=== PATIENT | female | born 1970 | race Caucasian/White ===

== ENCOUNTER 2017-09-01 08:46 | Emergency (ER) | payer MEDICAID ==
--- NOTE | ~2017-09-01 | ST ---
PATIENT:SHENA ZARATE MEDICAL RECORD: [id number] SEX: F LOCATION:ER ORDER #: ADMISSION DATE: 09/01/17 AGE OF PATIENT: 47 REFERRING PHYSICIAN: INTERPRETING PHYSICIAN: YESSENIA RESENDIZ MD DATE OF PROCEDURE: 09/01/2017 PROCEDURE: Exercise Stress Test. INDICATION: Chest pain of unknown etiology. She was exercised on a Star protocol for 6 minutes, terminated due to achievement of maximum target heart rate response with no EKG changes, no chest discomfort, no dysrhythmia. OVERALL IMPRESSION: Negative for inducible ischemia at adequate cardiac workload. TRANSINT:[id number] Voice Confirmation ID: [id number] DOCUMENT ID: [id number] YESSENIA RESENDIZ MD at 1351 CC: [id number] DICTATION DATE: 09/01/17 1323 DIRECTOR BUSINESS DEVELOPMENT: 09/01/17 [address] [place] [address]
--- NOTE | ~2017-09-01 | CN ---
PATIENT NAME:SHENA ZAARTE MEDICAL RECORD: [id number] : 74 LOCATION:.ER ADMIT DATE: ACCOUNT: [id number] CONSULTING PHYSICIAN: YESSENIA RESENDIZ MD REFERRING PHYSICIAN: GLADIS CABRERA MD DATE OF CONSULTATION: 09/01/2017 ADMITTING DIAGNOSES: 1. Chest pain. 2. Family history of coronary artery disease. HISTORY OF PRESENT ILLNESS: Mrs. Zarate has been having week and a half of increasing episodes of chest pain, some typical components for angina, some atypical components. She has a family history, but other than that really has no cardiac risk factors. She is not a smoker, has her ovaries. EKG is unremarkable. Troponin is unremarkable. PHYSICAL EXAMINATION: GENERAL APPEARANCE: Well-nourished, well-developed, appears stated age. Level of distress, comfortable. PSYCHIATRIC: Mental status, alert, normal affect. Orientation, oriented to time, place and person. EYES: Lids and conjunctiva, noninjected. No discharge, no pallor. ENT: Lips, teeth, gums, normal dentition. Oropharynx, no cyanosis, no pallor. NECK: Carotid arteries, bilateral normal upstroke, no bruits, no thrills. JUGULAR VEINS: No jugular venous pressure or distention. CERVICAL LYMPH NODES: Nontender, nonenlarged. THYROID: Not enlarged. Nontender. No nodules. LUNGS: Respiratory effort, unlabored. CHEST: Normal curvature. No thoracic deformity. No chest wall tenderness. Percussion, resonant. Auscultation, clear. No wheezes, no rales, no rhonchi. CARDIOVASCULAR: Precordial exam, nondisplaced. No heaves or pericardial thrills. Rate and rhythm, regular. Heart sounds, normal S1, normal S2. No S3, no gallop, no rub. Systolic murmur, not heard. Diastolic murmur, not heard. EXTREMITIES: No cyanosis, no edema. Peripheral pulses, full and equal in all extremities, except as noted. No bruits appreciated. ABDOMEN: Soft, nondistended. Normal aorta. No bruit. Nontender. No masses. Liver, nontender, no hepatomegaly. Spleen, nontender, no splenomegaly. MUSCULOSKELETAL: No joint tenderness. No joint swelling. No erythema. NEUROLOGICAL: Normal gait, normal strength, normal tone. SKIN: Warm and dry. OVERALL IMPRESSION: Chest pain of unknown etiology. We will perform exercise stress test. She has a normal EKG. Further care depends on the stress test. TRANSINT:[id number] Voice Confirmation ID: [id number] DOCUMENT ID: [id number] CONSULT REPORT [id number] SHENA ZARATE, YESSENIA PETTY at 1351 CC: [id number] DICTATION DATE: 09/01/17 1105 WATERPROOFER HELPER: 09/01/17 [address] [id number]
[2017-09-01 09:33] LABS: BASOPHILS 0.8 % (0-2); EOSINOPHILS 1.9 % (0-7); HEMATOCRIT 39.7 % (36.0-48.0); HEMOGLOBIN 13.5 g/dL (12-16); IMMATURE GRANULOCYTES 0.2 % (0-5); LYMPHOCYTES 29.4 % (15-50); MCH 30.3 pg (26.0-34.0); MCV 89.2 fL (80.0-100.0); MEAN PLATELET VOLUME 11.2 fL (7.4-10.4); MONOCYTES 8.3 % (2-11); NEUTROPHILS 59.4 % (40-80); PLATELET COUNT 231 10x3/uL (130-400); RBC 4.45 10x6/uL (4.00-5.40); RDW 12.5 % (11.5-14.5); WBC 5.3 10x3/uL (4.8-10.8)
[2017-09-01 09:43] LABS: ALBUMIN 3.8 g/dL (3.4-5.0); ALKALINE PHOSPHATASE 57 U/L (46-116); ALT (SGPT) 22 U/L (10-68); BILIRUBIN - TOTAL 1.17 mg/dL (0.2-1.3); CALC OSMOLALITY 277 mosm/kg (275-300); CALCIUM 8.9 mg/dL (8.5-10.1); CARBON DIOXIDE 25.4 mmol/L (21.0-32.0); CHLORIDE - SERUM 105 mmol/L (98-107); CREATININE - SERUM 0.5 mg/dL (0.6-1.3); GLUCOSE 87 mg/dL (74-106); POTASSIUM - SERUM 4.9 mmol/L (3.5-5.1); PROTEIN - SERUM 7.5 g/dL (6.4-8.2); SODIUM 140 mmol/L (136-145); UREA NITROGEN 12 mg/dL (7-18); eGFR NON AFRICAN AMERICAN > 90 mL/min (90-120)
[2017-09-01 09:55] LABS: CKMB 0.4 U/L (0.0-3.6); CREATINE KINASE 84 UL (21-215); PRO BNP 92 pg/mL (0-125)
[2017-09-01 10:03] LABS: TROPONIN-I < 0.017 ng/mL (0.000-0.060)
== END 2017-09-01 14:48 | disposition home or self-care (01) ==
LOC: EDBD 08:46 → D.ER 08:46
PROVIDERS: Emergency Medicine
DX: R07.9 Chest pain, unspecified (principal)

== ENCOUNTER 2017-09-08 08:29 | Outpatient (CLI) | payer MEDICAID ==
--- NOTE | ~2017-09-08 | OP ---
PATIENT NAME: SHENA ZARATE MEDICAL RECORD: [id number] :74 LOCATION:D.CAT ADMISSION DATE: SURGEON: YESSENIA RESENDIZ MD DATE OF OPERATION: 09/08/2017 PROCEDURES: 1. Left heart catheterization. 2. Selective coronary angiography. 3. Left ventriculogram. INDICATION: Chest pain compatible with angina. PROCEDURE IN DETAIL: After informed consent was obtained and after detailed explanation of risks, benefits as well as alternative therapies, the patient elected to proceed with angiogram and heart catheterization. Right radial area was prepped and draped in normal sterile fashion. Right radial artery was cannulated via modified Seldinger technique with placement of 5-Turkish sheath. All catheters exchanged through the sheath. FINDINGS: Left ventriculogram was performed in standard 30-degree CARNES view reveals good cardiac wall motion throughout all segments. Overall ejection fraction estimated 60%. SELECTIVE CORONARY ANGIOGRAPHY: Left main, left anterior descending, left circumflex, right coronary artery are all smooth-walled vessels with no angiographic evidence of coronary artery disease. OVERALL IMPRESSION: 1. No angiographic evidence of coronary artery disease. 2. Normal left heart pressures. 3. Normal left ventricular systolic function. Chest pain is noncardiac in etiology. No further cardiac workup needs to be ascertained. TRANSINT:[id number] Voice Confirmation ID: [id number] DOCUMENT ID: [id number] YESSENIA RESENDIZ MD at 1730 CC: [id number] DICTATION DATE: 09/08/17 1148 TELLER SUPERVISOR: 09/08/17 1309 DEP CLI 09/08/17 [id number] [id number]
--- NOTE | ~2017-09-08 | HP ---
PATIENT: SHENA MACKEY MEDICAL RECORD: [id number] ACCOUNT: [id number] LOCATION:INO : 74 ADMISSION DATE: 09/08/17 HISTORY AND PHYSICAL EXAMINATION DIAGNOSES: 1. Angina. 2. Family history of coronary artery disease. HISTORY OF PRESENT ILLNESS: Ms. Mackey presents for cardiac catheterization. She has continued to have episodes of chest pain, very typical for angina. She has a strong family history of coronary artery disease. PHYSICAL EXAMINATION: GENERAL APPEARANCE: Well-nourished, well-developed, appears stated age. Level of distress, comfortable. PSYCHIATRIC: Mental status, alert, normal affect. Orientation, oriented to time, place and person. EYES: Lids and conjunctiva, noninjected. No discharge, no pallor. ENT: Lips, teeth, gums, normal dentition. Oropharynx, no cyanosis, no pallor. NECK: Carotid arteries, bilateral normal upstroke, no bruits, no thrills. JUGULAR VEINS: No jugular venous pressure or distention. CERVICAL LYMPH NODES: Nontender, nonenlarged. THYROID: Not enlarged. Nontender. No nodules. LUNGS: Respiratory effort, unlabored. CHEST: Normal curvature. No thoracic deformity. No chest wall tenderness. Percussion, resonant. Auscultation, clear. No wheezes, no rales, no rhonchi. CARDIOVASCULAR: Precordial exam, nondisplaced. No heaves or pericardial thrills. Rate and rhythm, regular. Heart sounds, normal S1, normal S2. No S3, no gallop, no rub. Systolic murmur, not heard. Diastolic murmur, not heard. EXTREMITIES: No cyanosis, no edema. Peripheral pulses, full and equal in all extremities, except as noted. No bruits appreciated. ABDOMEN: Soft, nondistended. Normal aorta. No bruit. Nontender. No masses. Liver, nontender, no hepatomegaly. Spleen, nontender, no splenomegaly. MUSCULOSKELETAL: No joint tenderness. No joint swelling. No erythema. NEUROLOGICAL: Normal gait, normal strength, normal tone. SKIN: Warm and dry. REVIEW OF SYSTEMS: The patient reports easy bruising but reports no swollen glands. The patient reports no fever, no night sweats, no significant weight gain, no significant weight loss. No significant exercise tolerance. The patient reports no dry eyes, no irritation, no vision change. Patient reports no difficulty hearing and no ear pain. Patient reports no frequent nose bleeds or nose and sinus problems. Patient reports on arm pain on exertion. No shortness of breath while lying down. No history of heart murmur. Patient reports no cough, no wheezing or coughing up blood. Patient reports no abdominal pain, no vomiting. Normal appetite. No diarrhea and not vomiting blood. No nausea and no constipation. Patient reports no incontinence. No difficulty urinating. No hematuria. No increased frequency. Patient reports no muscle aches. No weakness, no arthralgias, no back pain. No swelling of the extremities. Patient reports no abnormal mole, no jaundice, no rashes. Reports no loss of consciousness. No weakness and no numbness. No seizures, dizziness, or headaches. The patient reports no depression, no sleep disturbance, feeling safe in a relationship and no alcohol abuse. Patient reports on fatigue. Reports no runny nose or sinus pressure. No itching, no hives, and no frequent HISTORY AND PHYSICAL [id number] SHENA MACKEY sneezing. OVERALL IMPRESSION: Chest pain in a continued escalating unstable fashion. We will proceed with coronary angiography. Further care depends upon the findings of the angiography. TRANSINT:[id number] Voice Confirmation ID: [id number] DOCUMENT ID: [id number] YESSENIA RESENDIZ MD at 1730 CC: [id number] DICTATION DATE: 09/08/17 1000 ASSIGNER: 09/08/17 1139 DEP CLI 09/08/17 [facility] [address] [id number]
--- NOTE | ~2017-09-08 | HEMODYNAMI ---
PATIENT:SHENA ZARATE MEDICAL RECORD: [id number] : 74 LOCATION:DAmandaCAT ADMISSION DATE: 09/08/17 Generatedon:09/08/201711:50 Patient name: SHENA ZARATE Patient #: [id number] SSN: : 1 05/24/1969 Date of study: 09/08/2017 Page: Of Hemodynamic Procedure Report Patient Data Patient Demographics Procedure consent was obtained First Name: SHENA Gender: Female Last Name: TESSA : 1970 Middle Initial: R Age: 47 year(s) Patient #: [id number] Race: Unknown Additional ID: [id number] Contact details Address: [address] [place] [address] State: [place] City: [place] Zip code: [address] Past Medical History Allergies: No known allergies Admission Admission Data Admission Date: 09/08/2017 Admission Time: 8:29 Lab Results Lab Result Date: 09/08/2017 Lab Result Time: 0:00 Biochemistry Name Units Result Min Max BUN mg/dl 9 --(*---)-- 7 18 Creatinine mg/dl 0.7 --(*---)-- 0.6 1.3 CBC Name Units Result Min Max Hemoglobin g/dl 14.3 --(*---)-- 13.5 17.5 Procedure Procedure Types Cath Procedure Diagnostic Procedure [facility] w/Coronaries Procedure Description Procedure Date Procedure Date: 09/08/2017 Procedure Start Time: 11:40 Procedure End Time: 11:47 Procedure Staff Name Function Bernardo Nuñez MD Performing Physician Maribell Dozier RT Monitor Deejay Waller RT Scrub Sanaz Pabon RN Nurse Procedure Data Cath Procedure Fluoroscopy Diagnostic fluoroscopy Total fluoroscopy Time: 1.4 time: 1.4 min min Diagnostic fluoroscopy Total fluoroscopy dose: 133 dose: 133 mGy mGy Contrast Material Contrast Material Type Amount (ml) Isovue 370 38 Entry Location Entry Primary Successful Side Size Upsize Upsize Entry Closure Tello ccessful Closure Location (Fr) 1 (Fr) 2 (Fr) Remarks Device Remarks Radial Right 6 Fr Mechanical artery Short Compression Estimated blood loss: 5 ml Diagnostic catheters Device Type Used For End Catheter Placement DIAGNOSTIC [place] 110cm 5 Procedure Fr catheter (676149) Procedure Complications No complications Procedure Medications Medication Administration Route Dosage Oxygen NC 2 l/min Lidocaine 2% added to field 20 Heparin Flush Bag added to field 2 bags (1000units/500ml NS) 0.9% NaCl I.V. 100 ml/hr Radial Cocktail I.A. 1 syringe (Verapomil 2mg/Nitro 400mcg/Heparin 1500units) Versed I.V. 2 mg Fentanyl I.V. 50 mcg Versed I.V. 1 mg Fentanyl I.V. 50 mcg Versed I.V. 1 mg Fentanyl I.V. 50 mcg Hemodynamics Rest HGB: 14.3 (g/dl) Heart Rate: 75 (bpm) Snapshots Pre Cath Intra NCS Post Cath Vital Signs Time Heart Resp SPO2 etCO2 NIBP Rhythm Pain Sedation Rate (ipm) (%) (mmHg) (mmHg) Status Level (bpm) 11:30:15 72 16 96 38.3 111/65(81) NSR 0 (11) 10(A) , No pain 11:34:52 67 14 96 45.9 109/63(74) NSR 0 (11) 10(A) , No pain 11:39:24 67 17 97 47.4 105/74(90) NSR 0 (11) 10(A) , No pain 11:44:01 77 18 96 45.1 95/54(80) NSR 0 (11) 9(A) , No pain 11:49:22 73 17 96 47.4 105/58(81) NSR 0 (11) 10(A) , No pain Medications Time Medication Route Dose Verified Delivered Reason Notes Effectiveness by by 11:33:24 Oxygen NC 2 l/min Bernardo Yo used for Joaquin Pabon RN procedure 11:33:30 Lidocaine 2% added 20ml Bernardo Chang for local to vial Joaquin Nuñez MD anesthetic field 11:33:37 Heparin Flush added 2 bags Bernardo Chang used for Bag to Joaquin Nuñez MD procedure (1000units/500ml field NS) 11:33:46 0.9% NaCl I.V. 100 Bernardo Buffie Per ml/hr Joaquin Pabon RN physician 11:33:53 Radial Cocktail I.A. 1 Bernardo Chang for (Verapomil syringe Joaquin Nuñez MD vasodilation 2mg/Nitro 400mcg/Heparin 1500units) 11:39:01 Versed I.V. 2 mg Bernardo Yo for sedation Joaquin Pabon RN 11:39:07 Fentanyl I.V. 50 mcg Bernardo Rodriguezie for sedation Joaquin Pabon RN 11:42:16 Versed I.V. 1 mg Bernardojerzy Rodriguezie for sedation Joaquin Pabon RN 11:42:20 Fentanyl I.V. 50 mcg Bernardo Rodriguezie for sedation Joaquin Pabon RN 11:44:33 Versed I.V. 1 mg Bernardojerzy Rodriguezie for sedation Joaquin Pabon RN 11:44:40 Fentanyl I.V. 50 mcg Bernardo Rodriguezie for sedation Joaquin Pabon RN Procedure Log Time Note 11:14:20 Signed procedure consent form obtained from patient. 11:14:25 Plan of Care:Hemodynamics will remain stable., Cardiac rhythm will remain stable., Comfort level will be maintained., Respiratory function will remain adequate., Patient/ family verbilizes understanding of procedure., Procedure tolerated without complication., Recovers from procedure without complications.. 11:14:26 Time tracking: Regular hours (M-F 7:00 - 5:00) 11:16:12 Lab Result : Creatinine 0.7 mg/dl 11:16:12 Lab Result : BUN 9 mg/dl 11:16:12 Lab Result : Hemoglobin 14.3 g/dl 11:16:17 Deejay Waller RT(R) sent for patient. Start room use. 11:20:33 Patient received from Pre/Post Procedure Room to CCL 1 Alert and oriented. Tansferred to table in Supine position. 11:20:35 Warm blankets applied, and franck hugger turned on for patient comfort. 11:20:38 Correct patient and procedure confirmed by team. 11:20:40 ECG and BP/O2 sat monitors applied to patient. 11:29:28 Vital chart was started 11:29:31 Baseline sample Acquired. 11:29:34 Rhythm: sinus rhythm 11:29:36 Full Disclosure recording started 11:29:41 H&P Date Dictated: 09/08/2017 Within 30 days and on chart., H&P Addendum completed by physician on day of procedure. (MUST COMPLETE FOR ALL OUTPATIENTS). 11:29:43 Pre-procedure instructions explained to patient. 11:29:43 Pre-procedure instructions explained to patient. 11:29:45 Family in patients room. 11:29:46 Patient NPO since Midnight. 11:29:54 Patient allergic to No known allergies 11:30:02 Is the patient allergic to Iodine/contrast media? No. 11:30:04 Is patient on blood thinner?No 11:30:41 Patient diabetic? No. 11:30:43 Patient not . Patient has had hysterectomy. 11:30:46 Previous problem with sedation/anesthesia? No ? 11:30:48 Snore? No 11:30:54 Sleep apnea? No 11:30:55 Deviated septum? No 11:30:56 Opens mouth fully? Yes 11:30:57 Sticks out tongue? Yes 11:30:59 Airway obstruction? No . 11:31:01 Dentures? No ? 11:31:10 Modified Duran's test Ulnar < 7 seconds 11:31:13 Patient pain scale 0/10 ?. 11:31:44 IV patent on arrival in left hand with 0.9% NaCl at [facility]. 11:31:54 Lab results completed and on chart. 11:31:57 Right Radial & Right Groin area was prepped with chlora-prep and draped in sterile fashion 11:31:58 Alarms reviewed by R. N. 11:31:59 Sharps counted by scrub and verified by R.N. 11:32:02 Use device set Radial Dx or PCI 11:32:03 ACIST Syringe (87617) opened to sterile field. 11:32:04 ACIST Hand Control (89449) opened to sterile field. 11:32:04 ACIST Manifold (49868) opened to sterile field. 11:32:05 Tegaderm 4 x 4 (1626W) opened to sterile field. 11:32:07 Bag Decanter () opened to sterile field. 11:32:08 Medline Cath Pack ([id number]) opened to sterile field. 11:32:08 DIAGNOSTIC WIRE .035 260cm J wire (475363) opened to sterile field. 11:32:10 MBrace Wrist Support ([id number]) opened to sterile field. 11:32:11 SHEATH 6Fr Prelude Radial ([id number]) opened to sterile field. 11:33:24 Oxygen 2 l/min NC was administered by Sanaz Pabon RN; used for procedure; 11:33:30 Lidocaine 2% 20ml vial added to field was administered by Bernardo Nuñez MD; for local anesthetic; 11:33:37 Heparin Flush Bag (1000units/500ml NS) 2 bags added to field was administered by Bernardo Nuñez MD; used for procedure; 11:33:46 0.9% NaCl 100 ml/hr I.V. was administered by Sanaz Pabon RN; Per physician; 11:33:53 Radial Cocktail (Verapomil 2mg/Nitro 400mcg/Heparin 1500units) 1 syringe I.A. was administered by Bernardo Nuñez MD; for vasodilation; 11:38:44 --------ALL STOP TIME OUT------ 11:38:45 Final Timeout: patient, procedure, and site verified with staff and physician. All members of the team are in agreement. 11:38:47 Right Radial & Right Groin site verified by team. 11:38:50 Physical assessment completed. ASA score P 2 - A patient with mild systemic disease as per Bernardo Nuñez MD. 11:38:54 Sedation plan: IV Moderate Sedation Medication:Versed, Fentanyl 11:39:01 Versed 2 mg I.V. was administered by Sanaz Pabon RN; for sedation; 11:39:07 Fentanyl 50 mcg I.V. was administered by Sanaz Pabon RN; for sedation; 11:40:01 Procedure started. 11:40:02 Zero performed for pressure channel P1 11:40:12 Local anesthetic to right radial artery with Lidocaine 2% by Bernardo Nuñez MD.INITIAL ACCESS ONLY 11:41:13 A 6 Fr Short sheath was inserted into the Right Radial artery 11:41:48 A DIAGNOSTIC [place] 110cm 5 Fr catheter (328576) was advanced over the wire and used for Procedure. 11:42:11 LV gram done using CARNES 11:42:16 Versed 1 mg I.V. was administered by Sanaz Pabon RN; for sedation; 11:42:19 Injector settings: Ml/sec: 7, Volume: 15, 11:42:20 Fentanyl 50 mcg I.V. was administered by Buffie Pabon RN; for sedation; 11:43:09 EF : 60 % 11:43:19 RCA angiography performed. 11:44:06 LCA angiography performed. 11:44:17 Catheter removed. 11:44:28 Procedure ended.(Physican Out) 11:44:33 Versed 1 mg I.V. was administered by Sanaz Pabon RN; for sedation; 11:44:35 TR BAND Standard ([id number]) opened to sterile field. 11:44:40 Fentanyl 50 mcg I.V. was administered by Sanaz Pabon RN; for sedation; 11:45:51 Sheath removed intact; hemostasis achieved with Mechanical Compression to the Right Radial artery. 11:45:56 Fluoroscopy time 01.40 minutes. 11:46:02 Fluoroscopy dose: 133 mGy 11:46:02 Flurop Dose total: 133 11:46:05 Contrast amount:Isovue 370 38ml. 11:46:07 Sharps counted by scrub and verified by R.N. 11:46:09 TR band inflated with 9cc of air. 11:46:13 Post-procedure physical assessment completed. ASA score P 2 - A patient with mild systemic disease as per Bernardo Nuñez MD. 11:46:17 Post procedure rhythm: unchanged. 11:46:25 Estimated blood loss: 5 ml 11:46:27 Post procedure instruction explained to patient.Patient verbalizes understanding. 11:46:27 Patient needs reinforcement of post procedure teaching. 11:46:58 Procedure and supply charges have been captured, reviewed, submitted and are correct. 11:47:01 Procedure Complication : No complications 11:47:02 Vital chart was stopped 11:47:02 See physician's report for complete and final results. 11:47:04 Report given to Pre/Post Procedure Room. 11:47:09 Patient transfered to Pre/Post Procedure Room with Bed. 11:47:11 Procedure ended. 11:47:11 Full Disclosure recording stopped 11:47:15 End room use (Document Last) Device Usage Item Name Manufacture Quantity Catalog Number Hospital Part Current M inimal Lot# / Charge Number Stock Stock Serial# Code ACIST Syringe Acist 1 31114 686689 176036 621886 2 0 (40267) [employer] Systems [place] ACIST Hand Acist 1 76888 561735 315872 976028 5 Control (78007) Medical Systems [employer] ACIST Manifold Acist 1 90877 652566 794526 981830 5 (98799) Medical Systems Inc Tegaderm 4 x 4 3M 1 1626W 005912 082745 278582 5 (1626W) Bag Decanter Microtek 1 2001S 663947 49129 748426 5 (2001S) Medical Inc. Medline Cath Cardinal 1 [id number] 657786 76072 136466 5 Pack Health ([id number]) DIAGNOSTIC WIRE [facility] 1 454637 273938 573091 735268 3 0 .035 260cm J wire (742874) MBrace Wrist Advanced 1 140-0250-00 062070 04579 854123 5 Support Vascular ([id number]) Dynamics SHEATH 6Fr Merit 1 [id number] 186086 199032 993347 5 Prelude Radial Medical ([id number]) DIAGNOSTIC Terumo 1 40-1601 998289 325079 291865 5 [place] 110cm 5 Fr catheter (694749) TR BAND Terumo 1 [id number] 615248 327749 773380 4 0 Standard ([id number]) Signature Audit [place] Stage Time Signature Unsigned Intra-Procedure 09/08/2017 Maribell Dozier 11:50:36 AM RT(R) Signatures Monitor : Maribell Dozier Signature : RT Date : Time : [id number] [place] [address]
[2017-09-08 09:30] LABS: EOSINOPHILS 3.6 % (0-7); HEMATOCRIT 42.6 % (36.0-48.0); HEMOGLOBIN 14.3 g/dL (12-16); IMMATURE GRANULOCYTES 0.1 % (0-5); LYMPHOCYTES 28.3 % (15-50); MCH 30.1 pg (26.0-34.0); MCHC 33.6 g/dL (31.0-37.0); MCV 89.7 fL (80.0-100.0); MEAN PLATELET VOLUME 11.3 fL (7.4-10.4); MONOCYTES 9.4 % (2-11); NEUTROPHILS 57.6 % (40-80); PLATELET COUNT 220 10x3/uL (130-400); RBC 4.75 10x6/uL (4.00-5.40); RDW 12.3 % (11.5-14.5); WBC 6.9 10x3/uL (4.8-10.8)
[2017-09-08 09:46] LABS: CALC OSMOLALITY 277 mosm/kg (275-300); CALCIUM 8.8 mg/dL (8.5-10.1); CARBON DIOXIDE 27.3 mmol/L (21.0-32.0); CHLORIDE - SERUM 105 mmol/L (98-107); CREATININE - SERUM 0.7 mg/dL (0.6-1.3); GLUCOSE 95 mg/dL (74-106); POTASSIUM - SERUM 3.9 mmol/L (3.5-5.1); SODIUM 140 mmol/L (136-145); UREA NITROGEN 9 mg/dL (7-18); eGFR NON AFRICAN AMERICAN > 90 mL/min (90-120)
== END 2017-09-08 14:00 | disposition home or self-care (01) ==
LOC: D.CATH 08:29
PROVIDERS: Internal Medicine Interventional Cardiology
DX: R07.89 Other chest pain (principal); Z01.812 Encounter for preprocedural laboratory examination